=== PATIENT | female | born 1950 ===

== ENCOUNTER 2019-04-13 08:45 | Emergency (ER) | payer OTHER ==
[~2019-04-13] VITALS: Ht 165.1 cm; Wt 63.5 kg
[~2019-04-13 08:45] MED LIST: CATAFLAM50 MG PO; LEVSIN0.125 MG; PRILOSEC20 MG; SYNTHROID100 MCG
[2019-04-13] MEDS ORDERED: ZANTAC150 M3 (08:58)
[2019-04-13] MEDS ORDERED: ZOCOR20 MG (08:58)
== END 2019-04-13 18:32 | disposition home or self-care (01) ==
LOC: ER 08:45
DX: K57.92 Diverticulitis of intestine, part unspecified, without perforation or abscess without bleeding (principal); R10.32 Left lower quadrant pain

== ENCOUNTER 2025-06-10 10:44 | Outpatient (CLI) | payer OTHER ==
[~2025-06-10 10:44] MED LIST changes: +ZANTAC150 M3; +ZOCOR20 MG
== END 2025-06-10 10:48 | disposition home or self-care (01) ==
LOC: RAD 10:44
PROVIDERS: ATTEND Orthopaedic Surgery
DX: M25.571 Pain in right ankle and joints of right foot (principal)